=== PATIENT | male | born 1960 | race Caucasian/White ===

== ENCOUNTER 2019-10-08 11:32 | Emergency (ER) | payer SELFPAY ==
[~2019-10-08] VITALS: Ht 180.3 cm; Wt 86.0 kg
[2019-10-08 11:36] VITALS: BP 116/73
== END 2019-10-08 12:15 | disposition home or self-care (01) ==
LOC: ER 11:32
DX: F10.229 Alcohol dependence with intoxication, unspecified (principal); Y90.0 Blood alcohol level of less than 20 mg/100 ml; F12.10 Cannabis abuse, uncomplicated; Z98.890 Other specified postprocedural states
CPT/HCPCS: 99283

== ENCOUNTER 2020-07-01 18:32 | Emergency (ER) | payer SELFPAY ==
[~2020-07-01] VITALS: Ht 182.9 cm; Wt 84.0 kg
[2020-07-01] MEDS ORDERED: IBUPROFEN 400MG TABLET PO ONE (20:00)
[2020-07-01 20:07] VITALS: BP 144/84
[2020-07-01 20:14] LABS: CLARITY URINE CLOUDY (CLEAR); COLOR URINE YELLOW (YELLOW); KETONES URINE TRACE (NEGATIVE); LEUKOCYTE ESTERASE URINE 2+ (NEGATIVE); NITRITE URINE POSITIVE (NEGATIVE); OCCULT BLOOD URINE 3+ (NEGATIVE); PH URINE 8.5 (4.5-8.0); PROTEIN URINE 1+ (NEGATIVE); SPECIFIC GRAVITY URINE 1.019 (1.005-1.030); UROBILINOGEN URINE 0.2 E.U./dL (0.2-1.0)
[2020-07-01 20:33] LABS: BASOPHILS % 0.6 % (0.0-2.0); HEMATOCRIT. 43.5 % (42.0-52.0); HEMOGLOBIN. 14.5 g/dL (14.0-18.0); LYMPHOCYTES % 7.3 % (20.0-50.0); MEAN CORPUSCULAR HEMOGLOBIN 31.3 pg (28.0-32.0); MEAN CORPUSCULAR VOLUME 93.6 fL (80.0-94.0); MEAN PLATELET VOLUME 7.5 fl (7.4-10.4); MONOCYTES % 6.5 % (2.0-8.0); NEUTROPHILS % 84.6 % (40.0-76.0); PLATELET 212 x1000/uL (130-400); RED BLOOD CELL COUNT 4.65 mill/uL (4.7-6.1); RED CELL DISTRIBUTION WIDTH 14.7 % (11.6-14.6)
[2020-07-01 20:38] LABS: CHLORIDE 102 mEq/L (98-107)
== END 2020-07-01 22:21 | disposition home or self-care (01) ==
LOC: ER 18:32
DX: N13.2 Hydronephrosis with renal and ureteral calculous obstruction (principal); N39.0 Urinary tract infection, site not specified; Z98.890 Other specified postprocedural states
CPT/HCPCS: 36415; 74176; 80053; 81003; 85025; 87077; 87186; 93005; 99285

== ENCOUNTER 2023-04-06 18:56 | Emergency (ER) | payer MEDICAID ==
[~2023-04-06] VITALS: Ht 182.9 cm; Wt 77.0 kg
[2023-04-06] MEDS ORDERED: BACITRACIN ZINC OINT UDPKT TOP ONE ×2 (21:30)
[2023-04-06] MEDS ORDERED: TETANUS, DIPHTHERIA, PERTUSSIS VAC/PF 0.5ML (>10YR OLD) IM ONE (21:30)
[2023-04-06 22:47] VITALS: BP 124/82
== END 2023-04-06 22:49 | disposition home or self-care (01) ==
LOC: ER 18:56
DX: M79.89 Other specified soft tissue disorders (principal)
CPT/HCPCS: 99283

== ENCOUNTER 2023-04-10 12:48 | Emergency (ER) | payer MEDICARE, MEDICAID ==
[~2023-04-10] VITALS: Ht 180.3 cm; Wt 77.0 kg
[2023-04-10] MEDS ORDERED: SODIUM CHLORIDE 0.9% 1000ML BAG (SEPSIS BOLUS) IV ONE (13:45)
[2023-04-10 14:01] LABS: CLARITY URINE CLEAR (CLEAR); COLOR URINE YELLOW (YELLOW); KETONES URINE TRACE (NEGATIVE); LEUKOCYTE ESTERASE URINE 1+ (NEGATIVE); NITRITE URINE POSITIVE (NEGATIVE); OCCULT BLOOD URINE NEGATIVE (NEGATIVE); PH URINE 5.5 (4.5-8.0); PROTEIN URINE TRACE (NEGATIVE); SPECIFIC GRAVITY URINE 1.024 (1.005-1.030)
[2023-04-10 14:12] LABS: EOSINOPHILS % 1.9 % (0.0-5.0); HEMATOCRIT. 37.3 % (42.0-52.0); LYMPHOCYTES % 16.2 % (20.0-50.0); MEAN CORPUSCULAR HEMOGLOBIN 31.6 pg (28.0-32.0); MEAN CORPUSCULAR VOLUME 90.8 fL (80.0-94.0); MEAN PLATELET VOLUME 6.9 fl (7.4-10.4); MONOCYTES % 10.2 % (2.0-8.0); NEUTROPHILS % 70.7 % (40.0-76.0); PLATELET 290 x1000/uL (130-400); RED BLOOD CELL COUNT 4.11 mill/uL (4.7-6.1); RED CELL DISTRIBUTION WIDTH 14.7 % (11.6-14.6)
[2023-04-10 14:21] LABS: PROTHROMBIN TIME 10.3 sec (9.6-11.0)
[2023-04-10 14:22] LABS: CHLORIDE 105 mEq/L (98-107)
[2023-04-10 14:26] LABS: *AMPHETAMINES SCREEN URINE NEGATIVE (NEGATIVE); *BARBITURATES SCREEN URINE NEGATIVE (NEGATIVE); *BENZODIAZEPINES SCREEN URINE NEGATIVE (NEGATIVE); *COCAINE SCREEN URINE NEGATIVE (NEGATIVE); CANNABINOID URINE SCREEN PRESUMTIVE POSITIVE (NEGATIVE); METHADONE URINE SCREEN NEGATIVE (NEGATIVE); OPIATES URINE SCREEN NEGATIVE (NEGATIVE); PHENCYCLIDINE URINE SCREEN NEGATIVE (NEGATIVE)
[2023-04-10 14:38] LABS: CREATINE KINASE 85 IU/L (39-308); ETHANOL BLOOD < 10 mg/dL
[2023-04-10] MEDS ORDERED: SULFAMETHOXAZOLE/TRIMETHOPRIM 800/160MG TABLET PO NR (16:00)
[2023-04-10] MEDS ORDERED: IBUPROFEN 600MG TABLET PO NR (16:00)
[2023-04-10] MEDS ORDERED: IBUP-2029 MT (16:01)
[2023-04-10] MEDS ORDERED: SULF1TAB48 MT (16:01)
[2023-04-10 16:58] VITALS: BP 109/70
== END 2023-04-10 18:03 | disposition home or self-care (01) ==
LOC: ER 12:48
DX: L03.116 Cellulitis of left lower limb (principal); L03.115 Cellulitis of right lower limb; N39.0 Urinary tract infection, site not specified; F10.21 Alcohol dependence, in remission; Z00.00 Encounter for general adult medical examination without abnormal findings; Z98.890 Other specified postprocedural states
CPT/HCPCS: 36415; 71045; 73630; 80053; 80305; 80320; 81003; 82550; 83605; 83880; 84145; 84484; 85025; 86141; 87186; 93005; 93970; 96360; 99285; G0480

== ENCOUNTER 2023-09-15 08:25 | Emergency (ER) | payer MEDICAID, MEDICARE ==
[~2023-09-15] VITALS: Ht 182.9 cm; Wt 65.0 kg
[~2023-09-15 08:25] MED LIST: IBUP-2029 MT; SULF1TAB48 MT
[2023-09-15 08:28] VITALS: BP 106/91; PULSE 64; RESP 19; TEMP 98; O2SAT 100
[2023-09-15] MEDS ORDERED: PERM60CR4 TP (08:46)
== END 2023-09-15 09:14 | disposition home or self-care (01) ==
LOC: ER 08:25
DX: S20.369A Insect bite (nonvenomous) of unspecified front wall of thorax, initial encounter (principal); Z98.890 Other specified postprocedural states; W57.XXXA Bitten or stung by nonvenomous insect and other nonvenomous arthropods, initial encounter; Y93.89 Activity, other specified; Y92.89 Other specified places as the place of occurrence of the external cause; Y99.8 Other external cause status
CPT/HCPCS: 99282